=== PATIENT | female | born 1960 | race Caucasian/White ===

== ENCOUNTER 2021-01-07 11:00 | Day surgery (SDC) | payer MEDICAID ==
[~2021-01-07] VITALS: Ht 162.6 cm; Wt 61.2 kg
[2021-01-07] MEDS ORDERED: METOCLOPRAMIDE HCL 10 MG/2 ML VIAL IVP PRN (13:00)
[2021-01-07] MEDS ORDERED: ONDANSETRON HCL 4 MG/2 ML VIAL IVP PRN (13:00)
[2021-01-07] MEDS ORDERED: fentaNYL CITRATE/PF 100 MCG/2 ML AMP IVP PRN ×2 (13:00)
[2021-01-07] MEDS ORDERED: LEVOFLOXACIN IN DEXTROSE 5 % 500 MG/100 ML PIGGYBACK IV ONE (15:20)
[2021-01-07] MEDS ORDERED: DEXAMETHASONE SOD PHOSPHATE 4 MG/ML VIAL IVP ONE (15:20)
[2021-01-07] MEDS ORDERED: MIDAZOLAM HCL 5 MG/5 ML VIAL IVP ONE (15:20)
[2021-01-07] MEDS ORDERED: SEVOFLURANE 15 MIN GAS INH ONE (15:20)
[2021-01-07] MEDS ORDERED: PHENYLEPHRINE HCL 10 MG/ML VIAL (NEOSYNEPHRINE) IV ONE (15:20)
[2021-01-07] MEDS ORDERED: fentaNYL CITRATE/PF 100 MCG/2 ML AMP IVP ONE (15:20)
[2021-01-07] MEDS ORDERED: ONDANSETRON HCL 4 MG/2 ML VIAL IVP ONE (15:20)
[2021-01-07] MEDS ORDERED: LR 1,000 ML IV.SOLN IV ONE (15:20)
[2021-01-07] MEDS ORDERED: GLYCOPYRROLATE 0.2 MG/ML VIAL IJ ONE (15:20)
[2021-01-07] MEDS ORDERED: PROPOFOL 200MG/ 20ML VIAL (DIPRIVAN) IV ONE (15:20)
[2021-01-07] MEDS ORDERED: ROCURONIUM BROMIDE 10 MG/ML (ZEMURON) IV ONE (15:20)
[2021-01-07] MEDS ORDERED: OXYMETAZOLINE HCL 0.05% NASAL SPRAY NS ONE (15:20)
[2021-01-07] MEDS ORDERED: fentaNYL CITRATE/PF 100 MCG/2 ML AMP ONE (17:25)
[2021-01-07 18:17] VITALS: BP_SYST 129
== END 2021-01-07 19:50 | disposition home or self-care (01) ==
LOC: SDS 11:00
PROVIDERS: ATTEND Otolaryngology
DX: J34.89 Other specified disorders of nose and nasal sinuses (principal); D38.5 Neoplasm of uncertain behavior of other respiratory organs; J32.9 Chronic sinusitis, unspecified; F12.10 Cannabis abuse, uncomplicated; N95.1 Menopausal and female climacteric states; Z79.899 Other long term (current) drug therapy; Z20.822 Contact with and (suspected) exposure to COVID-19
CPT/HCPCS: 87070; 87070-TC; 87075-TC; 87101; 87116; 88305; 88311; C1726; J1100; J1956; J2250; J2370; J2405; J2704; J3010; J3490; J7120; U0003